=== PATIENT | female | born 1960 | race Caucasian/White ===

== ENCOUNTER → 2020-02-08 | Outpatient (CLI) | payer OTHER ==
--- NOTE | 2020-02-12 08:27 | MM ---
Reason for exam: screening (asymptomatic). Last mammogram was performed 5 years and 6 months ago. History: Patient is postmenopausal. Physical Findings: A clinical breast exam by your physician is recommended on an annual basis and results should be correlated with mammographic findings. MG Screening Mammo w CAD Bilateral CC, MLO, and XCCL view(s) were taken. Prior study comparison: August 16, 2014, bilateral MG screening mammo w CAD. May 19, 2009, bilateral digital screening mammogram. The breast tissue is heterogeneously dense. This may lower the sensitivity of mammography. Extensive benign oil cyst calcifications. New 8-9 o'clock posterior, central heterogeneous grouped right breast calcifications. ASSESSMENT: Incomplete: need additional imaging evaluation, BI-RAD 0 RECOMMENDATION: Special view mammogram of the right breast. (magnification) If lesion persists on supplemental views, image directed ultrasound is recommended. [facility] will attempt to contact patient to return for supplemental views and ultrasound if indicated.
== END | disposition home or self-care (01) ==
LOC: RADMAMWWP 11:09
PROVIDERS: ATTEND Internal Medicine
DX: Z12.31 Encounter for screening mammogram for malignant neoplasm of breast (principal)
CPT/HCPCS: 77067

== ENCOUNTER → 2020-02-18 | Outpatient (CLI) | payer OTHER ==
--- NOTE | 2020-02-18 13:12 | MM ---
Reason for exam: additional evaluation requested from abnormal screening. Last mammogram was performed less than 1 month ago. History: Patient is postmenopausal. Physical Findings: Nurse did not find any significant physical abnormalities on exam. MG 3D Work Up W/Cad RT CC with magnification, ML with magnification, and ML view(s) were taken of the right breast. Prior study comparison: February 08, 2020, bilateral MG screening mammo w CAD. August 16, 2014, bilateral MG screening mammo w CAD. There are scattered fibroglandular densities. Finding: There are intermediate concern, suspicious coarse heterogeneous, grouped/clustered calcifications in the lower outer quadrant, posterior position of the right breast 9cm from the nipple. New finding since February 08, 2020 and August 16, 2014. These results were verbally communicated with the patient and result sheet given to the patient on 02/18/20. ASSESSMENT: Suspicious, BI-RAD 4 RECOMMENDATION: Stereotactic core biopsy of the right breast. Called Dr. Jay's office with mammographic findings and has scheduled an appointment for the patient for 03/26/20 at 12:[address] Blancas. Biopsy scheduled for 03/13/20 at 10:00. PRELIMINARY REPORT CALLED AND FAXED TO DR. BLANCAS ON 02/18/20.
== END | disposition home or self-care (01) ==
LOC: RADMAMWWP 08:00
PROVIDERS: ATTEND Internal Medicine
DX: R92.8 Other abnormal and inconclusive findings on diagnostic imaging of breast (principal)
CPT/HCPCS: 77061; 77065

== ENCOUNTER → 2020-03-13 | Day surgery (SDC) | payer OTHER ==
[2020-03-13 09:11] VITALS: PULSE 80; RESP 16
[2020-03-13 10:51] VITALS: BP 128/69; TEMP 97.9
--- NOTE | 2020-03-13 15:37 | MM ---
Stereotactic Mammotome core biopsy right breast. HISTORY: Microcalcifications The Microcalcifications in question within the right breast were targeted by the undersigned. Procedure was performed by the undersigned. Informed consent was obtained and all of the patients questions were answered. The standard sterile technique was utilized and appropriate local anesthesia was obtained with 1% lidocaine. Mammotome probe was advanced and multiple core samples were obtained and sent to pathology for interpretation. Microclip marker was deployed at the site of biopsy. Post procedural mammogram demonstrates appropriate deployment of radiopaque clip marker. The patient tolerated the procedure well and left the department in stable condition. Pathology results are pending. IMPRESSION: Successful stereotactic core biopsy right breast with pathology results pending. Pathology Results: Benign RIGHT BREAST, NEEDLE CORE BIOPSY: Fatty breast parenchyma with fibroadenomatoid changes and coarse intraductal as well as stromal calcifications in a background of fibrocystic spectrum changes. Recommendation Follow up mammogram of the right breast in 6 months. LATOYA
== END ==
LOC: RADMAMWWP 08:45
PROVIDERS: ATTEND Surgery
DX: D24.1 Benign neoplasm of right breast (principal); N60.11 Diffuse cystic mastopathy of right breast
CPT/HCPCS: 88305; 19081; A4648; J2001

== ENCOUNTER → 2020-06-23 | Outpatient (CLI) | payer OTHER ==
[2020-06-23 16:02] LABS: Albumin 4.3 g/dL (3.80-4.90); Albumin/Globulin Ratio 1.95 (1.60-3.17); Anion Gap 6.2 mmol/L (4.00-12.00); Calcium 8.9 mg/dL (8.7-10.3); Carbon Dioxide 28.8 mmol/L (21.6-31.8); Chol/HDL Ratio 3.53; Globulin 2.2 g/dL (1.6-3.3); LDL Cholesterol,Calculated 127.2 mg/dL (0.0-131.0); Non-African American GFR(CKD) 98.4 (60.0-200.0); Potassium 4.7 mmol/L (3.5-5.5); Total Bilirubin 0.5 mg/dL (0.3-1.2); Total Protein 6.5 g/dL (6.2-8.2); VLDL Calculation 16.8 mg/dL (5.00-40.00)
[2020-06-23 16:30] LABS: Hemoglobin A1C 7.2 % (4.0-6.0)
[2020-06-23 16:42] LABS: Urine Creatinine 131.9 mg/dL
== END | disposition home or self-care (01) ==
LOC: LABWHC1 10:25
PROVIDERS: ATTEND Internal Medicine Endocrinology, Diabetes & Metabolism
DX: E11.65 Type 2 diabetes mellitus with hyperglycemia (principal)
CPT/HCPCS: 36415; 80053; 80061; 82043; 82570; 83036; 84443

== ENCOUNTER → 2020-08-11 | Outpatient (CLI) | payer OTHER ==
--- NOTE | 2020-08-12 14:50 | BD ---
EXAMINATION TYPE: Axial Bone Density DATE OF EXAM: 08/11/2020 COMPARISON: NONE CLINICAL HISTORY: Height: 5 FT 4 1/4 IN Weight: 271 FRAX RISK QUESTIONS: Alcohol (3 or more units per day): NO Family History (Parent hip fracture): NO Glucocorticoids (More than 3mos): NO (Ex: prednisone, prednisolone, methylprednisolone, dexamethasone, and hydrocortisone). History of Fracture in Adulthood: YES Secondary Osteoporosis: 1. Type 1 Diabetes: NO 2. Hyperthyroidism: NO 3. Menopause before 45: NO 4. Malnutrition: NO 5. Chronic liver disease: NO Rheumatoid Arthritis: NO Current Tobacco Use: NO RISK FACTORS HISTORY OF: Family History of Osteoporosis: NO Active: NO Diet low in dairy products/other sources of calcium: NO Postmenopausal woman: MID TO LATE 40'S Take estrogen and/or progesterone medications: NONE Lost more than 2 inches in height since high school: NO Poor Health: FAIR MEDICATIONS: Additional Medications: RYBELSIS, GLIPIZIDE, METFORMIN, LEXAPRO, ANALAPRIL, IBUPROFEN, DITILISEM Additional History: EXAM MEASUREMENTS: Bone mineral densitometry was performed using the [employer] System. Bone mineral density as measured about the Lumbar spine is: ----- L1-L4(G/cm2): 1.472 T Score Values are as follows: ----- L2: 1.9 ----- L3: 2.3 ----- L4: 2.0 ----- L1-L4: 2.4 Bone mineral density has: INCREASED 0.2 % since study of: 2014 Bone mineral density about the R hip (g/cm2): 0.876 Bone mineral density about the L hip (g/cm2): 1.153 T Score values are as follows: -----R Neck: -1.2 -----L Neck: 0.8 -----R Total: 1.3 -----L Total: 1.7 Bone mineral density has: DECREASED -4.6 % since study of: 2014 IMPRESSION: Osteopenia (T Score between -2.5 and -1). There is slightly increased risk of fracture and the patient may be considered for treatment. Re-Screen 2-5 years. NOTE: T-SCORE=SD OF THE YOUNG ADULT MEAN.
== END | disposition home or self-care (01) ==
LOC: RADBDWWP 09:19
PROVIDERS: ATTEND Internal Medicine
DX: M85.80 Other specified disorders of bone density and structure, unspecified site (principal); Z78.0 Asymptomatic menopausal state
CPT/HCPCS: 77080

== ENCOUNTER → 2020-09-15 | Outpatient (CLI) | payer OTHER ==
--- NOTE | 2020-09-15 14:04 | MM ---
Reason for exam: follow-up at short interval from prior study. Last mammogram was performed 7 months ago. History: Patient is postmenopausal. Benign MG stereo VAD BX RT of the right breast, March 13, 2020. Took hormonal contraceptives for 3 years beginning at age 19. Physical Findings: Nurse did not find any significant physical abnormalities on exam. MG 3D Diag Mammo W/Cad RT CC and MLO view(s) were taken of the right breast. Prior study comparison: February 18, 2020, right breast MG 3d work up w/cad RT. February 08, 2020, bilateral MG screening mammo w CAD. The breast tissue is heterogeneously dense. This may lower the sensitivity of mammography. Stable scattered calcifications. Previous mammotome biopsy in the right breast. There is no discrete abnormality. No significant new findings when compared with previous films. These results were verbally communicated with the patient and result sheet given to the patient on 09/15/20. ASSESSMENT: Benign, BI-RAD 2 RECOMMENDATION: Return to routine screening mammogram schedule for both breasts.
== END | disposition home or self-care (01) ==
LOC: RADMAMWWP 13:06
PROVIDERS: ATTEND Surgery
DX: R92.8 Other abnormal and inconclusive findings on diagnostic imaging of breast (principal)
CPT/HCPCS: 77061; 77065

== ENCOUNTER 2021-02-22 15:26 | Emergency (ER) | payer OTHER ==
[2021-02-22 15:31] VITALS: TEMP 99.1
--- NOTE | 2021-02-22 16:24 | XR ---
EXAMINATION TYPE: XR chest 2V DATE OF EXAM: 02/22/2021 COMPARISON: 02/16/2010 HISTORY: Difficulty breathing TECHNIQUE: 2 views FINDINGS: Heart and mediastinum are normal. Lungs are clear. Diaphragm is normal. Bony thorax appears normal. IMPRESSION: Normal chest. No change.
[2021-02-22] MEDS ORDERED: CASIRIVIMAB (REGN10933) (EUA) 600 MG, IMDEVIMAB (REGN10987) (EUA) 600 MG in SODIUM CHLO... IVPB ONE (16:30)
[2021-02-22] MEDS ORDERED: SODIUM CHLORIDE 0.9% 50 ML IVPB ONE (16:30)
--- NOTE | 2021-02-22 16:41 | ED ---
SOB HPI - General Chief Complaint: Shortness of Breath Stated Complaint: Covid+, SOB Time Seen by Provider: 02/22/21 15:38 Source: patient, RN notes reviewed Mode of arrival: ambulatory Limitations: no limitations - History of Present Illness Initial Comments: A she is a 60-year-old female that presented emergency department complaining of Covid positive test today 02/22/2021 with mild symptoms of fatigue and shortness of breath sensation. They note that they went to [facility] got tested positive and sent here for monoclonal antibody therapy. Patient was otherwise a well-appearing 60-year-old female in no distress or pain. She denied any chest pain headache nausea vomiting diarrhea constipation fever fatigue chills. - Related Data Home Medications Medication Instructions Recorded Confirmed Enalapril [Vasotec] 20 mg PO DAILY 02/29/20 03/13/20 Escitalopram Oxalate [Lexapro] 20 mg PO DAILY 02/29/20 03/13/20 Ibuprofen [Motrin] 800 mg PO BID 02/29/20 03/13/20 Losartan Potassium [Cozaar] 90 mg PO BID 02/29/20 03/13/20 glipiZIDE [Glucotrol] 5 mg PO BID 02/29/20 03/13/20 metFORMIN HCL [Glucophage] 1,000 mg PO BID 02/29/20 03/13/20 sitaGLIPtin [Januvia] 100 mg PO DAILY 02/29/20 03/13/20 Allergies Allergy/AdvReac Type Severity Reaction Status Date / Time Penicillins Allergy Rash/Hives Verified 02/22/21 15:31 codeine AdvReac Nausea Verified 02/22/21 15:31 Review of Systems ROS Statement: Those systems with pertinent positive or pertinent negative responses have been documented in the HPI. ROS Other: All systems not noted in ROS Statement are negative. Past Medical History Past Medical History: Diabetes Mellitus, Hypertension, Osteoarthritis (OA) Additional Past Medical History / Comment(s): vasospasms History of Any Multi-Drug Resistant Organisms: None Reported Past Surgical History: Section Additional Past Surgical History / Comment(s): abdominal absess surgery. left ankle reconstruction Past Anesthesia/Blood Transfusion Reactions: No Reported Reaction Past Psychological History: Depression Smoking Status: Never smoker Past Alcohol Use History: None Reported Past Drug Use History: None Reported General Exam Limitations: no limitations General appearance: alert, in no apparent distress, obese Head exam: Present: atraumatic, normocephalic, normal inspection Eye exam: Present: normal appearance, PERRL, EOMI. Absent: scleral icterus, conjunctival injection, periorbital swelling Neck exam: Present: normal inspection Respiratory exam: Present: normal lung sounds bilaterally. Absent: respiratory distress, wheezes, rales, rhonchi, stridor Cardiovascular Exam: Present: regular rate, normal rhythm, normal heart sounds. Absent: systolic murmur, diastolic murmur, rubs, gallop, clicks GI/Abdominal exam: Present: soft, normal bowel sounds. Absent: distended, tenderness, guarding, rebound, rigid Extremities exam: Present: normal inspection, full ROM, normal capillary refill. Absent: tenderness, pedal edema, joint swelling, calf tenderness Neurological exam: Present: alert, oriented X3 Psychiatric exam: Present: normal affect, normal mood Skin exam: Present: warm, dry, intact, normal color. Absent: rash Course Vital Signs 02/22/21 15:27 Temperature 99.1 F Pulse Rate 83 Respiratory 20 Rate Blood Pressure 126/77 O2 Sat by Pulse 97 Oximetry Medical Decision Making - Medical Decision Making 60-year-old female who tested positive for Covid today and experienced 7 days with the symptoms here for monoclonal antibody therapy. Chest x-ray ordered. Chest x-ray negative for any acute cardiopulmonary process. Patient agreed to undergo monoclonal antibody IV infusion. Case discussed with Dr. Slade, patient can discharge home after infusion. - Radiology Data Radiology results: report reviewed, image reviewed Chest x-ray: Normal chest. No change. Disposition Clinical Impression: COVID Disposition: HOME SELF-CARE Condition: Stable Instructions (If sedation given, give patient instructions): Coronavirus Disease 2019 (COVID-19) Additional Instructions: Please return to the Emergency Department if symptoms worsen or any other concerns. Follow-up with primary care as needed. Quarantine per CDC guidelines. Take Tylenol Motrin as needed for any fevers. Is patient prescribed a controlled substance at d/c from ED?: No Referrals: Melani Jay MD [Primary Care Provider] - 1-2 days Time of Disposition: 16:41
[2021-02-22 18:24] VITALS: BP 142/65; PULSE 86; RESP 18
== END 2021-02-22 18:31 | disposition home or self-care (01) ==
LOC: EC 15:26
DX: U07.1 COVID-19 (principal); E11.9 Type 2 diabetes mellitus without complications; M19.90 Unspecified osteoarthritis, unspecified site; I10 Essential (primary) hypertension; Z88.5 Allergy status to narcotic agent; Z88.0 Allergy status to penicillin; Z79.84 Long term (current) use of oral hypoglycemic drugs; Z79.1 Long term (current) use of non-steroidal anti-inflammatories (NSAID); Z79.899 Other long term (current) drug therapy
CPT/HCPCS: 71046; 96365; 99284

== ENCOUNTER → 2021-03-20 | Outpatient (CLI) | payer OTHER ==
--- NOTE | 2021-03-20 14:52 | XR ---
EXAMINATION TYPE: XR chest 2V DATE OF EXAM: 03/20/2021 COMPARISON: 12/23/2020 HISTORY: Shortness of breath TECHNIQUE: Frontal and lateral views of the chest are obtained. FINDINGS: Scattered senescent parenchymal changes noted. Hyperinflation compatible with COPD. No evidence for infiltrate. No evidence for atelectasis. Heart size is stable. Mediastinal structures are stable and grossly unremarkable. No evidence for hilar prominence. Degenerative changes dorsal spine. IMPRESSION: 1. No evidence for acute pulmonary disease.
== END | disposition home or self-care (01) ==
LOC: RADXRMAIN 13:49
PROVIDERS: ATTEND Internal Medicine
DX: R06.02 Shortness of breath (principal)
CPT/HCPCS: 71046

== ENCOUNTER → 2021-07-14 | Outpatient (CLI) | payer OTHER ==
--- NOTE | 2021-07-15 15:12 | MM ---
Reason for exam: screening (asymptomatic). Last mammogram was performed 10 months ago. History: Patient is postmenopausal. Benign MG stereo VAD BX RT of the right breast, March 13, 2020. Took hormonal contraceptives for 3 years beginning at age 19. Physical Findings: A clinical breast exam by your physician is recommended on an annual basis and results should be correlated with mammographic findings. MG 3D Screening Mammo W/Cad Bilateral CC and MLO view(s) were taken. Prior study comparison: September 15, 2020, right breast MG 3d diag mammo w/cad RT. February 18, 2020, right breast MG 3d work up w/cad RT. There are scattered fibroglandular densities. No significant changes when compared with prior studies. ASSESSMENT: Benign, BI-RAD 2 RECOMMENDATION: Routine screening mammogram of both breasts in 1 year.
== END ==
LOC: RADMAMWWP 13:26
PROVIDERS: ATTEND Internal Medicine
DX: Z12.31 Encounter for screening mammogram for malignant neoplasm of breast (principal)
CPT/HCPCS: 77063; 77067

== ENCOUNTER → 2023-08-31 | Outpatient (CLI) | payer MEDICARE ==
--- NOTE | 2023-09-01 10:24 | MM ---
Reason for Exam: Screening (asymptomatic). Last mammogram was performed 2 year(s) and 2 month(s) ago. Patient History: Menarche at age 11. First Full-Term at age 21. Postmenopausal. Hormonal Contraceptives for 3 years from age 19 until age 22. 03/13/2020, Benign Core Biopsy on the right side. Risk Values: Mackenzie 5 year model risk: 1.8%. NCI Lifetime model risk: 6.6%. Prior Study Comparison: 02/18/2020 Right Diagnostic Mammogram, [facility]. 09/15/2020 Right Diagnostic Mammogram, [facility]. 07/14/2021 Bilateral Screening Mammogram, [facility]. Tissue Density: The breasts are heterogeneously dense, which may obscure small masses. Findings: Analyzed By CAD. There is no suspicious group of microcalcifications or new suspicious mass in either breast. Overall Assessment: Benign, BI-RAD 2 Management: Screening Mammogram of both breasts in 1 year. . Patient should continue monthly self-breast exams. A clinical breast exam by your physician is recommended on an annual basis. This exam should not preclude additional follow-up of suspicious palpable abnormalities. Note on Mackenzie scores and lifetime risk: 1. A Mackenzie score greater than 3% is considered moderate risk. If this is the case, consider specialist referral to assess eligibility for a risk reducing agent. 2. If overall lifetime risk for the development of breast cancer is 20% or higher, the patient may qualify for future screening with alternating mammogram and breast MRI. Electronically signed and approved by: Gabe Schwarz M.D. Radiologis
== END | disposition home or self-care (01) ==
LOC: RADMAMWWP 10:15
PROVIDERS: ATTEND Internal Medicine
DX: Z12.31 Encounter for screening mammogram for malignant neoplasm of breast (principal); Z78.0 Asymptomatic menopausal state
CPT/HCPCS: 77063; 77067

== ENCOUNTER → 2023-12-23 | Outpatient (CLI) | payer MEDICARE ==
--- NOTE | 2023-12-24 10:22 | XR ---
EXAMINATION TYPE: XR lumbosacral spine 5 V DATE OF EXAM: 12/23/2023 Comparison: None Clinical History: 63-year-old female M54.50 LOW BACK PAIN, UNSPECIFIED Findings: Hypertrophic facet arthropathy throughout especially mid to lower lumbar spine. Situated lumbar lordo sis. Degenerative grade 1 anterolisthesis L4-L5. Degenerative grade 1 retrolisthesis T12-L1, L1-L2, a nd L2-L3. Vertebral body heights are preserved. Anterior endplate spondylosis especially lower thorac ic and upper lumbar spine. Mild to moderate degenerative disc disease throughout. Baastrup's disease. Impression: 1. Hypertrophic facet arthropathy throughout with degenerative grade 1 spondylolisthesis T12-L3 level s as well as L4-L5. 2. Accentuated lumbar lordosis and Baastrup's disease. 3. Mild to moderate multilevel degenerative disc disease. 4. No vertebral compression collapse.
== END | disposition home or self-care (01) ==
LOC: RADXRMAIN 16:59
PROVIDERS: ATTEND Internal Medicine
DX: M43.16 Spondylolisthesis, lumbar region (principal); M51.36 Other intervertebral disc degeneration, lumbar region; M47.816 Spondylosis without myelopathy or radiculopathy, lumbar region; M48.26 Kissing spine, lumbar region
CPT/HCPCS: 72110

== ENCOUNTER → 2024-01-05 | Outpatient (CLI) | payer MEDICARE | END | disposition home or self-care (01) | LOC: LABPAT 01-04 15:28 | PROVIDERS: ATTEND Orthopaedic Surgery | DX: Z01.812 Encounter for preprocedural laboratory examination (principal); M19.011 Primary osteoarthritis, right shoulder; Z22.322 Carrier or suspected carrier of Methicillin resistant Staphylococcus aureus | CPT/HCPCS: 87070 ==

== ENCOUNTER 2024-01-13 05:48 | Day surgery (SDC) | payer MEDICARE ==
[2024-01-11 11:10] VITALS: BMI 42.0
--- NOTE | 2024-01-12 08:41 | P.HPOR ---
History of Present Illness H&P Date: 01/12/24 Chief Complaint: Right shoulder pain The patient is a 63-year-old female who presents with right shoulder pain for the past several years. It's worsened recently. She's having pain with any attempted overhead use and at night. She's tried medications in addition to therapy and home exercises without much relief. She notes daily pain that limits her. Review of Systems Per HPI Past Medical History Past Medical History: Diabetes Mellitus, GERD/Reflux, Hyperlipidemia, Hypertension, Osteoarthritis (OA) Additional Past Medical History / Comment(s): Vasospasms, none since diagnosed, benign positional vertigo. History of Any Multi-Drug Resistant Organisms: None Reported Past Surgical History: Section, Orthopedic Surgery Additional Past Surgical History / Comment(s): Abdominal absess surgery, esophageal dilation, left ankle reconstruction with hardware. Past Anesthesia/Blood Transfusion Reactions: No Reported Reaction Smoking Status: Never smoker - Past Family History Father Family Medical History: No Reported History Medications and Allergies Home Medications Medication Instructions Recorded Confirmed Type Enalapril [Vasotec] 20 mg PO DAILY 02/29/20 01/11/24 History Escitalopram Oxalate [Lexapro] 20 mg PO DAILY 02/29/20 01/11/24 History Ibuprofen [Motrin] 800 mg PO BID 02/29/20 01/11/24 History metFORMIN HCL [Glucophage] 1,000 mg PO BID 02/29/20 01/11/24 History Ascorbic Acid [Vitamin C] 1,000 mg PO BID 02/22/21 01/11/24 History Calcium Carb/Mag Ox/Zinc Sulf 2 tab PO DAILY 02/22/21 01/11/24 History [Jfb-Txu-Vbha 334-134-5 mg Tab] Cholecalciferol [Vitamin D3 (25 5,000 units PO DAILY 02/22/21 01/11/24 History Mcg = 1000 Iu)] Cyanocobalamin (Vitamin B-12) 1,000 mcg PO AC-SUPPER 02/22/21 01/11/24 History [Vitamin B-12] Glucosamine/Chondr Urbina A Sod [Osteo 2 tab PO DAILY 02/22/21 01/11/24 History Bi-Flex Caplet] Pyridoxine HCl (Vitamin B6) 100 mg PO AC-SUPPER 02/22/21 01/11/24 History [Vitamin B-6] Semaglutide [Ozempic] 1 mg SQ MO 02/22/21 01/11/24 History Turmeric Root Extract [Turmeric] 500 mg PO BID 02/22/21 01/11/24 History Vitamin B Complex 1 cap PO AC-SUPPER 02/22/21 01/11/24 History Zinc 50 mg PO DAILY 02/22/21 01/11/24 History dilTIAZem HCL [Cardizem] 90 mg PO BID 02/22/21 01/11/24 History Omeprazole 20 mg PO HS 01/05/24 01/11/24 History Atorvastatin [Lipitor] 20 mg PO HS 01/11/24 01/11/24 History Allergies Allergy/AdvReac Type Severity Reaction Status Date / Time Penicillins Allergy Rash/Hives Verified 01/11/24 10:57 codeine AdvReac Nausea Verified 01/11/24 10:57 Physical Examination - Shoulder right Appearance: effusion Tenderness with palpation: anterior, bicipital groove Pain: with abduction, with forward flexion ROM: abduction: 80 degrees ROM: internal rotation: lower lumbar ROM: external rotation: 20 degrees Crepitus with motion: Yes Strength: abduction: 5/5 Strength: external rotation: 5/5 Tests: internal impingement tests: positive, external impingment tests: positive Results The patient is a well-developed well-nourished female proximally 5 foot 6, 255 pounds of endomorphic habits. HEENT exam is nonfocal, neck is supple. She's tender about the anterior right glenohumeral joint. Moderate crepitus is noted. Beasley, Neer sign, and speed tests are positive. Passive forward elevation is 90. Her distal neurovascular exam appears intact in the right upper extremity. - Diagnostic results Shoulder x-ray: image reviewed (3 views of the right shoulder obtaining the office show severe glenohumeral joint space narrowing with [id number] changes and subchondral sclerosis.) Assessment and Plan Assessment: Right severe glenohumeral joint osteoarthrosis Obesity Plan: I talked to the patient at length regarding her condition along with treatment options. At this point she is quite symptomatic having pain and mechanical symptoms related to her right shoulder osteoarthrosis despite conservative measures. After a thorough discussion she opts to proceed with surgery. We'll plan to proceed with right total shoulder arthroplasty. Risks and benefits were discussed at length in layman's terms. We will likely keep the patient for 23 hole postoperatively.
[~2024-01-13 05:48] MED LIST: TRANEXAMIC 1,000 MG/100ML-NACL 1,000 MG in SALINE 1 100ML.BAG IVPB PRN
[2024-01-13] MEDS ORDERED: LIDOCAINE 1% (10MG/ML) FOR IV START INTRADERMA PRN (06:11)
[2024-01-13] MEDS: IV FLUID CONTINUATION 1,000 ML IV ONE ×2 (06:19→09:42)
[2024-01-13 06:39] LABS: Glucose,Whole Blood 138 mg/dL (70-110)
[2024-01-13] MEDS: ONDANSETRON 4 MG/2 ML VIAL IVP ONE (06:48)
[2024-01-13] MEDS: LACTATED RINGERS 1,000 ML IV SCH (06:48)
[2024-01-13] MEDS: MELOXICAM 7.5 MG TAB PO PRN (06:49)
[2024-01-13] MEDS: ACETAMINOPHEN TAB 500 MG TAB PO PRN (06:49)
[2024-01-13] MEDS: DEXAMETHASONE SOD PHOSPHATE 4 MG/ML 1 ML VIAL IV ONE (06:49)
[2024-01-13] MEDS: MIDAZOLAM 2 MG/2 ML VIAL IVP ONE (06:51)
[2024-01-13] MEDS: fentaNYL (PF) 50 MCG/ML 2 ML AMP IVP ONE (06:51)
[2024-01-13] MEDS ORDERED: MIDAZOLAM 2 MG/2 ML VIAL IV PRN (07:00)
[2024-01-13] MEDS ORDERED: fentaNYL (PF) 50 MCG/ML 2 ML AMP ONE (07:26)
[2024-01-13] MEDS ORDERED: PHENYLEPHRINE 10 MG/ML VIAL ONE (07:26)
[2024-01-13] MEDS ORDERED: MIDAZOLAM 2 MG/2 ML VIAL ONE (07:26)
[2024-01-13] MEDS ORDERED: ROCURONIUM 10 MG/ML (5 ML VIAL) IV ONE (07:26)
[2024-01-13] MEDS ORDERED: SUCCINYLCHOLINE CHLORIDE 200 MG/10 ML VIAL IV ONE (07:26)
[2024-01-13] MEDS ORDERED: LIDOCAINE 1%-EPI 1:100,000 20 ML VIAL ONE (07:26)
[2024-01-13] MEDS ORDERED: NEOSTIGMINE 1 MG/ML 10 ML VIAL ONE (07:26)
[2024-01-13] MEDS ORDERED: ROPIVACAINE 5 MG/ML 30 ML VIAL ONE (07:26)
[2024-01-13] MEDS ORDERED: LIDOCAINE 1% INJ 10MG/ML (20 ML MDV) ONE (07:26)
[2024-01-13] MEDS ORDERED: GLYCOPYRROLATE 0.2 MG/ML 2 ML VIAL ONE (07:26)
[2024-01-13] MEDS ORDERED: PROPOFOL 10 MG/ML 20 ML VIAL IV ONE (07:26)
--- NOTE | 2024-01-13 07:58 | P.ANPRN ---
Procedure Note - Anesthesia - Nerve Block Performed Right Interscalene Single Time Out Performed: Yes Date of Procedure: 01/13/24 Procedure Start Time: 06:50 Procedure Stop Time: 07:01 Location of Patient: PreOp Indication: Acute Post-Operative Pain, Requested by Surgeon Sedation Type: Sedate with meaningful contact maintained Preparation: Sterile Prep Position: Supine Needle Types: Pajunk Needle Gauge: 21 Ultrasound used to visualize needle placement: Yes Ultrasound used to observe medication spread: Yes Injectate: 0.5% Ropivacaine (see comment for volume) (15 ml + 10 ml 1% lidocaine with epi) Blood Aspirated: No Pain Paresthesia on Injection Noted: No Resistance on Injection: Normal Image Stored and Saved: Yes Events: Uneventful and Well Tolerated
[2024-01-13] MEDS: ceFAZolin 1,000 MG in SODIUM CHLORIDE 0.9% 1,000 ML IRRIGATION ONE (08:00)
[2024-01-13] MEDS ORDERED: ONDANSETRON 4 MG/2 ML VIAL IVP PRN (09:16)
[2024-01-13] MEDS ORDERED: HYDROcodone/APAP 5-325MG 1 EACH TAB PO PRN (09:16)
[2024-01-13] MEDS: LACTATED RINGERS 1,000 ML IV ONE (09:23)
[2024-01-13] MEDS: HYDROmorphone 0.5 MG/0.5 ML SYRINGE IVP PRN ×2 (10:07→23:33)
--- NOTE | 2024-01-13 11:46 | P.CONS ---
History of Present Illness - Reason for Consult Consult date: 01/13/24 - History of Present Illness Keily Arambula is a 63-year-old female patient who presented for right shoulder osteoplasty with Dr. Mckoy on 01/12/2024 patient has a long-standing history of osteoarthritis to right shoulder with failed conservative management.additional medical history includes diabetes mellitus, GERD, hyperlipidemia, hypertension, osteoarthritis and depression. At this time patient is resting comfortably bed. Patient complaining of some right shoulder pain. Current vital signs temp 97.6, heart rate, respiratory rate 16, blood pressure 107/54 with pulse ox of 97% on 3 L. Patient denies chest pain or shortness breath. Patient denies nausea vomiting or diarrhea. Patient denies any urinary burning or frequency Review of Systems please refer to HPI otherwise unremarkable Past Medical History Past Medical History: Diabetes Mellitus, GERD/Reflux, Hyperlipidemia, Hypertension, Osteoarthritis (OA) Additional Past Medical History / Comment(s): Vasospasms, none since diagnosed, benign positional vertigo. History of Any Multi-Drug Resistant Organisms: None Reported Past Surgical History: Section, Orthopedic Surgery Additional Past Surgical History / Comment(s): Abdominal absess surgery, esophageal dilation, left ankle reconstruction with hardware. Past Anesthesia/Blood Transfusion Reactions: No Reported Reaction Smoking Status: Never smoker - Past Family History Father Family Medical History: No Reported History Medications and Allergies Home Medications Medication Instructions Recorded Confirmed Type Enalapril [Vasotec] 20 mg PO DAILY 02/29/20 01/13/24 History Escitalopram Oxalate [Lexapro] 20 mg PO DAILY 02/29/20 01/13/24 History Ibuprofen [Motrin] 800 mg PO BID 02/29/20 01/13/24 History metFORMIN HCL [Glucophage] 1,000 mg PO BID 02/29/20 01/13/24 History Ascorbic Acid [Vitamin C] 1,000 mg PO BID 02/22/21 01/13/24 History Calcium Carb/Mag Ox/Zinc Sulf 2 tab PO DAILY 02/22/21 01/13/24 History [Wod-Pwe-Aypm 334-134-5 mg Tab] Cholecalciferol [Vitamin D3 (25 5,000 units PO DAILY 02/22/21 01/13/24 History Mcg = 1000 Iu)] Cyanocobalamin (Vitamin B-12) 1,000 mcg PO AC-SUPPER 02/22/21 01/13/24 History [Vitamin B-12] Glucosamine/Chondr Urbina A Sod [Osteo 2 tab PO DAILY 02/22/21 01/13/24 History Bi-Flex Caplet] Pyridoxine HCl (Vitamin B6) 100 mg PO AC-SUPPER 02/22/21 01/13/24 History [Vitamin B-6] Semaglutide [Ozempic] 1 mg SQ MO 02/22/21 01/13/24 History Turmeric Root Extract [Turmeric] 500 mg PO BID 02/22/21 01/13/24 History Vitamin B Complex 1 cap PO AC-SUPPER 02/22/21 01/13/24 History Zinc 50 mg PO DAILY 02/22/21 01/13/24 History dilTIAZem HCL [Cardizem] 90 mg PO BID 02/22/21 01/13/24 History Omeprazole 20 mg PO HS 01/05/24 01/13/24 History Atorvastatin [Lipitor] 20 mg PO HS 01/11/24 01/13/24 History Allergies Allergy/AdvReac Type Severity Reaction Status Date / Time Penicillins Allergy Rash/Hives Verified 01/13/24 06:30 codeine AdvReac Nausea Verified 01/13/24 06:30 Physical Exam Vitals: Vital Signs Temp Pulse Pulse Resp BP BP Pulse Ox 01/13/24 10:11 67 16 111/50 97 01/13/24 09:56 72 16 128/60 96 01/13/24 09:41 97.6 F 91 16 124/65 95 01/13/24 07:23 85 16 119/58 97 01/13/24 06:30 97.6 F 75 16 122/57 99 Intake and Output 01/12/24 01/13/24 01/13/24 22:59 06:59 14:59 Intake Total 500 451 Output Total 150 Balance 500 301 Intake: IV 500 451 Output: Estimated Blood Loss 150 Other: Weight 112.5 kg Head normocephalic Neck supple Lungs clear to auscultation bilaterally no wheezing or crackles Heart regular rate and rhythm S1-S2, no rub or gallop Abdomen is soft nontender nondistended positive bowel sounds no hepatosplenomegaly Extremities no edema. Right shoulder dressing clean dry and intact Neuro alert and orientated to 3 Results Labs: Abnormal Lab Results - Last 24 Hours (Table) 01/13/24 Range/Units 06:36 POC Glucose (mg/dL) 138 H (70-110) mg/dL Assessment and Plan Assessment: 1. Status post right shoulder arthroplasty with Dr. Mckoy on 01/13/2024 2. History of diabetes mellitus 3. History of GERD 4. History of essential hypertension 5. History of depression thank you for this consultation we will continue to follow patient closely throughout stay Home meds resumed A.m. labs ordered Time with Patient: Greater than 30 (Greater than 60% of the total time spent in counseling and coordination of care)
[2024-01-13] MEDS: HYDROmorphone 1 MG/ML 1 ML SYRINGE IVP PRN (13:15)
--- NOTE | 2024-01-13 14:27 | P.OP ---
Date of Procedure: 01/13/24 Preoperative Diagnosis: Right severe glenohumeral joint osteoarthrosis Postoperative Diagnosis: Same Procedure(s) Performed: Right total shoulder arthroplasty Implants: [employer] size 12 press-fit humeral stem, size 12 body, 44 x 18 eccentric humeral head, 44 mm pegged cemented glenoid component. Anesthesia: jace VIEIRA Surgeon: Renan Rolon Daylight Driller #1: Jacob Daniel Estimated Blood Loss (ml): 150 Pathology: none sent Condition: stable Disposition: PACU Indications for Procedure: The patient's a 63-year-old female who presents with progressive right shoulder pain secondary to osteoarthrosis despite conservative measures. A discussion of the risks and benefits of operative intervention versus continued conservative measures was made with the patient. She opted to proceed with surgery. Operative risks to include infection, neurovascular injury, developed blood clots, fracture, possible component loosening/failure and possible need for subsequent procedures was discussed. Informed consent was obtained. Operative Findings: As below Description of Procedure: The patient was brought to the operating room, and after induction of general anesthesia was placed in the beachchair position. The bony prominences were appropriately padded. The right upper extremity was prepped and draped in normal fashion. A deltopectoral incision was then made lateral to the coracoid process extending approximately 12 cm. The skin was incised sharply. Subcutaneous tissues were divided bluntly. Electrocautery was used for hemostasis. The deltopectoral interval was identified and the cephalic vein gently retracted laterally with the deltoid. Subdeltoid adhesions were bluntly dissected. A self-retaining retractor was placed. The clavipectoral fascia was opened and the conjoined tendon gently retracted medially. The upper one third of the pectoralis major was released to help facilitate exposure. The biceps was identified and the sheath was opened. The rotator interval was opened. The biceps was tenotomized and allowed to retract distally. A scapularis peel was performed and this was tagged with #2 Ethibond.. The humeral head was then exposed releasing the capsule off the humeral neck. The shoulder was gently dislocated. A starting hole was made in the head in line with the humeral shaft. The shaft was reamed by hand up to 12 mm. There is good distal chatter. The cutting guide was placed planning on 8 cut flush with the rotator cuff insertion and 30 of retroversion. The cutting block was pinned in place. The humeral head cut was then made. This measured most appropriately at 44 mm. Residual inferior osteophytes were carefully removed flush with the sycuan cortical bone. A posterior glenoid retractor was placed. The glenoid was then exposed releasing the labrum from the 12-6 o'clock position. Residual labral tissue was removed. The glenoid sized most appropriate for mm. A guidewire was then inserted planning on the appropriate version. The glenoid was reamed down to a bleeding bony surface. The central peg hole was drilled. The alignment guide was placed in the peripheral peg holes drilled. The trial size 44 mm glenoid was placed and was fully seated. There was good anterior to posterior and inferior to superior fit. The trial component was removed. Pulsatile lavage was utilized. The bony surface was dried. The peripheral peg holes were then pressurized with cement utilizing a syringe. Excess cement was removed. A central peg glenoid was then placed and was fully seated. This was gently impacted. This was held in place until the cement had sufficiently hardened. Attention was then paid again towards preparing the proximal humerus. The appropriate broach was placed in 30 of retroversion and was fully seated. An eccentric 44 x 18 mm humeral head was placed. The shoulder was gently reduced. It was taken through a range of motion. It was felt to be stable in flexion and extension with internal and external rotation. I felt there was adequate roman catholic of soft tissue tension. The shoulder was gently dislocated. The trial components were then removed. A #2 Ethibond was placed laterally for reattachment of the lesser tuberosity. The humeral stem was inserted in 30 of retroversion and was fully seated. There was good rotational stability. The eccentric 44 x 18 mm humeral head was gently impacted. The shoulder was then gently reduced and taken through range of motion and was felt to be stable. Pulsatile lavage was utilized. The subscapularis was reattached utilizing #2 Ethibond suture. The rotator interval was closed with #2 Ethibond suture. She had minimal drainage at this point therefore a deep drain was not placed. The deltopectoral interval was closed with interrupted 2-0 Vicryl sutures. The subcu tissues were reapproximated with interrupted 2-0 Vicryl sutures. The skin was reprepped with 3-0 subcuticular Prolene suture. Steri-Strips were applied. A sterile dressing was applied in addition to a sling. The patient was then awoken from general anesthesia and transferred to recovery room in good condition. Blood loss was estimated at 150 mL. No complications were incurred. Sponge and needle counts were correct at the end the case. Lei LOPEZ assisted of the major components the case to include positioning, exposure, r esection, implantation, and closure.
[2024-01-13 14:28] LABS: Glucose,Whole Blood 155 mg/dL (70-110)
[2024-01-13] MEDS: CYANOCOBALAMIN 500 MCG TAB PO SCH (16:32)
[2024-01-13 16:43] LABS: Glucose,Whole Blood 151 mg/dL (70-110)
[2024-01-13] MEDS: PYRIDOXINE 50 MG TAB PO SCH (16:44)
[2024-01-13] MEDS ORDERED: NON FORMULARY DRUG (Vitamin B Complex [Vitamin B Complex] 1 EACH Capsule) PO SCH (17:30)
[2024-01-13] MEDS: ATORVASTATIN 20 MG TAB PO SCH (20:36)
[2024-01-13] MEDS: metFORMIN 500 MG TAB PO SCH (20:36)
[2024-01-13] MEDS: PANTOPRAZOLE 40 MG TABLET PO SCH (20:37)
[2024-01-13] MEDS: DILTIAZEM ORAL 30 MG TAB PO SCH (20:37)
[2024-01-13] MEDS: ASCORBIC ACID 500 MG TAB PO SCH (20:37)
[2024-01-13 20:49] LABS: Glucose,Whole Blood 188 mg/dL (70-110)
--- NOTE | 2024-01-13 20:50 | XR ---
EXAMINATION TYPE: XR shoulder complete AP portable RT DATE OF EXAM: 01/13/2024 Comparison: None Clinical History: 63-year-old female s/p right total shoulder arthroplasty Findings: Single image shows placement of right shoulder arthroplasty. The humeral stem component appears well seated. Alignment grossly anatomic. Moderate degenerative change at the AC joint. Airless to recent o peration. There is opacity at the right mid lung, partially visualized. Impression: 1. Uncomplicated postoperative appearance right total shoulder arthroplasty. 2. Opacity at the right mid lung partially visualized. Consider dedicated chest radiograph to exclude any infiltrate or other abnormality.
[2024-01-13] MEDS ORDERED: NON FORMULARY DRUG (Turmeric Root Extract [Turmeric] 500 MG Capsule) PO SCH (21:00)
[2024-01-13 21:27] VITALS: RESP 18
[2024-01-14 06:15] LABS: Glucose,Whole Blood 146 mg/dL (70-110)
[2024-01-14] MEDS: HYDROcodone/APAP 7.5-325MG 1 EACH TAB PO PRN (06:39)
[2024-01-14 08:10] VITALS: BP 115/63; PULSE 80; TEMP 97.8
[2024-01-14] MEDS: SENNOSIDES-DOCUSATE SODIUM 1 EACH TAB PO SCH (08:52)
[2024-01-14] MEDS: CHOLECALCIFEROL 125 MCG (5000 IU) TABLET PO SCH (08:52)
[2024-01-14] MEDS: ASPIRIN 325 MG TAB PO SCH (08:52)
[2024-01-14] MEDS: IBUPROFEN 800 MG TAB PO SCH (08:52)
[2024-01-14] MEDS: ESCITALOPRAM 20 MG TAB PO SCH (08:52)
[2024-01-14] MEDS: lisinopriL 20 MG TAB PO SCH (08:52)
[2024-01-14] MEDS: ZINC SULFATE 220 MG CAP PO SCH (08:52)
[2024-01-14] MEDS ORDERED: NON FORMULARY DRUG (Glucosamine/Chondr Su A Sod [Osteo Bi-Flex Caplet] 1 EACH Tablet) PO SCH (09:00)
[2024-01-14] MEDS ORDERED: NON FORMULARY DRUG (Calcium Carb/Mag Ox/Zinc Sulf [Cal-Mag-Zinc 334-134-5 Mg Tab] 1 EACH T PO SCH (09:00)
[2024-01-14 09:40] LABS: Basophils # (A) 0.03 X 10*3/uL (0.00-0.10); Basophils % (A) 0.3 %; Eosinophils # (A) 0.08 X 10*3/uL (0.04-0.35); Eosinophils % (A) 0.9 %; HCT 32.6 % (37.2-46.3); HGB 10.8 g/dL (12.0-15.0); Lymphocytes # (A) 1.55 X 10*3/uL (0.90-5.00); Lymphocytes % (A) 16.9 %; MCH 30.3 pg (27.0-32.0); MCHC 33.1 g/dL (32.0-37.0); MCV 91.6 FL (80.0-97.0); Mean Platelet Volume 9.2 FL (9.5-12.2); Monocytes # (A) 1.06 X 10*3/uL (0.20-1.00); Monocytes % (A) 11.6 %; NRBC Per 100 WBC 0 X 10*3/uL (0.00-0.01); Neutrophils # (A) 6.41 X 10*3/uL (1.80-7.70); Neutrophils % (A) 69.9 %; Platelet Count 267 X 10*3/uL (140-440); RBC 3.56 X 10*6/uL (4.10-5.20); RDW 12.5 % (11.5-14.5); WBC 9.17 X 10*3/uL (4.50-10.00)
[2024-01-14 09:53] LABS: ALT 10 U/L (8-44); AST 14 U/L (13-35); Albumin 3.7 g/dL (3.8-4.9); Albumin/Globulin Ratio 1.76 Ratio (1.60-3.17); Alkaline Phosphatase 77 U/L (41-126); BUN/Creat Ratio 17.29 Ratio (12.00-20.00); Blood Urea Nitrogen 12.1 mg/dL (9.0-27.0); Calcium 8.6 mg/dL (8.7-10.3); Carbon Dioxide 27.3 mmol/L (21.6-31.8); Chloride 98 mmol/L (96-109); Globulin 2.1 g/dL (1.6-3.3); Glucose 156 mg/dL (70-110); Potassium 4.2 mmol/L (3.5-5.5); Sodium 135 mmol/L (135-145); Total Bilirubin 0.4 mg/dL (0.3-1.2); Total Protein 5.8 g/dL (6.2-8.2)
[2024-01-14 11:40] LABS: Glucose,Whole Blood 144 mg/dL (70-110)
--- NOTE | 2024-01-14 11:43 | P.PN ---
Subjective Progress Note Date: 01/14/24 Keily Arambula is a 63-year-old female patient who presented for right shoulder osteoplasty with Dr. Mckoy on 01/12/2024 patient has a long-standing history of osteoarthritis to right shoulder with failed conservative management.additional medical history includes diabetes mellitus, GERD, hyperlipidemia, hypertension, osteoarthritis and depression. At this time patient is resting comfortably bed. Patient complaining of some right shoulder pain. Current vital signs temp 97.6, heart rate, respiratory rate 16, blood pressure 107/54 with pulse ox of 97% on 3 L. Patient denies chest pain or shortness breath. Patient denies nausea vomiting or diarrhea. Patient denies any urinary burning or frequency On 01/14/2024 patient was seen and examined on the medical floor she is alert and oriented x 3 in no apparent distress there is no fever or chills no headache or dizziness no chest pain no shortness of breath no cough no nausea or vomiting no abdominal pain no diarrhea and no urinary symptoms vital exam this morning reveals a temperature of 97.8 pulse 80 respiration 18 blood pressure 115/63 pulse ox 94% on 2 L nasal cannula white blood count is 9.17 hemoglobin 10.8 platelet count 267. No medical issues at this time. Objective - Vital Signs Vital signs: Vital Signs Temp 97.8 F 01/14/24 08:00 Pulse 80 01/14/24 08:00 Resp 18 01/14/24 08:00 BP 115/63 01/14/24 08:00 Pulse Ox 94 L 01/14/24 08:00 FiO2 Intake & Output 01/13/24 01/14/24 01/14/24 18:59 06:59 18:59 Intake Total 751 Output Total 150 Balance 601 Weight 112.5 kg Intake: IV 451 Oral 300 Output: Estimated Blood Loss 150 Other: Voiding Method Toilet # Voids 2 3 - Exam In general patient is alert and oriented x 3 in no distress HEENT head normocephalic and atraumatic Neck is supple no JVD no goiter no lymphadenopathy no carotid bruit Chest examination is clear to auscultation no crackles no wheezing Cardiac exam reveals regular heart sounds S1 and S2 no gallops no murmurs Abdomen is soft nontender no organomegaly with normal bowel sounds Extremity exam reveals no edema no cyanosis or clubbing Neurological examination reveals no gross focal deficits - Labs CBC & Chem 7: 01/14/24 06:03 01/14/24 06:03 Labs: Abnormal Lab Results - Last 24 Hours (Table) 01/13/24 01/13/24 01/13/24 Range/Units 14:27 16:42 20:47 RBC (4.10-5.20) X 10*6/uL Hgb (12.0-15.0) g/dL Hct (37.2-46.3) % MPV (9.5-12.2) FL Monocytes # (0.20-1.00) X 10*3/uL Glucose (70-110) mg/dL POC Glucose (mg/dL) 155 H 151 H 188 H (70-110) mg/dL Calcium (8.7-10.3) mg/dL Total Protein (6.2-8.2) g/dL Albumin (3.8-4.9) g/dL 01/14/24 01/14/24 01/14/24 Range/Units 06:03 06:03 06:13 RBC 3.56 L (4.10-5.20) X 10*6/uL Hgb 10.8 L (12.0-15.0) g/dL Hct 32.6 L (37.2-46.3) % MPV 9.2 L (9.5-12.2) FL Monocytes # 1.06 H (0.20-1.00) X 10*3/uL Glucose 156 H (70-110) mg/dL POC Glucose (mg/dL) 146 H (70-110) mg/dL Calcium 8.6 L (8.7-10.3) mg/dL Total Protein 5.8 L (6.2-8.2) g/dL Albumin 3.7 L (3.8-4.9) g/dL Assessment and Plan Assessment: 1. Status post right shoulder arthroplasty with Dr. Mckoy on 01/13/2024 2. History of diabetes mellitus 3. History of GERD 4. History of essential hypertension 5. History of depression thank you for this consultation we will continue to follow patient closely throughout stay Home meds resumed A.m. labs ordered
--- NOTE | 2024-01-14 12:29 | P.DS ---
Providers Date of admission: 01/13/24 Expected date of discharge: 01/14/24 Attending physician: Renan Rolon Consults: 01/13/24 09:16 Consult Physician Routine Consulting Provider: Melani Jay Consult Reason/Comments: medical management Do you want consulting provider notified?: Yes Primary care physician: Melani Pierre [facility] Course: Hospital Course: The patient was evaluated preoperatively and found to have the diagnosis of Right severe glenohumeral joint osteoarthrosis. They underwent appropriate preoperative care and were willing to undergo the intended procedure. They underwent a successful Right total shoulder arthroplasty, were recovered appropriately and sent to the floor. While on the floor they worked with physical therapy, occupational therapy and nursing to enhance their recovery experience. Their pain was well controlled through their stay and they were started on appropriate medications, DVT ppx modalities, activity and dietary needs. Daily labs were monitored closely, and transfusions were only used when necessary. Medicine as well as other consulting services have made their input and have helped with our team approach and multidisciplinary care. PT milestones have been met and passed and they have made the recommendation of home for this patient and treating providers agree with this care path. The patient will be discharged home with appropriate medications, instructions and follow-up information and in stable condition. Patient Condition at Discharge: Good Plan - Discharge Summary Discharge Rx Participant: No New Discharge Prescriptions: New Aspirin 325 mg PO BID #60 tab HYDROcodone/APAP 7.5-325MG [Smith 7.5] 1 each PO Q4-6H PRN #42 tab PRN Reason: Pain No Action Escitalopram Oxalate [Lexapro] 20 mg PO DAILY Enalapril [Vasotec] 20 mg PO DAILY metFORMIN HCL [Glucophage] 1,000 mg PO BID Ibuprofen [Motrin] 800 mg PO BID Pyridoxine HCl (Vitamin B6) [Vitamin B-6] 100 mg PO AC-SUPPER Vitamin B Complex 1 cap PO AC-SUPPER dilTIAZem HCL [Cardizem] 90 mg PO BID Zinc 50 mg PO DAILY Calcium Carb/Mag Ox/Zinc Sulf [Taf-Jzv-Ljia 334-134-5 mg Tab] 2 tab PO DAILY Omeprazole 20 mg PO HS Cyanocobalamin (Vitamin B-12) [Vitamin B-12] 1,000 mcg PO AC-SUPPER Cholecalciferol [Vitamin D3 (25 Mcg = 1000 Iu)] 5,000 units PO DAILY Ascorbic Acid [Vitamin C] 1,000 mg PO BID Turmeric Root Extract [Turmeric] 500 mg PO BID Glucosamine/Chondr Urbina A Sod [Osteo Bi-Flex Caplet] 2 tab PO DAILY Semaglutide [Ozempic] 1 mg SQ MO Atorvastatin [Lipitor] 20 mg PO HS Discharge Medication List Enalapril [Vasotec] 20 mg PO DAILY 02/29/20 [History] Escitalopram Oxalate [Lexapro] 20 mg PO DAILY 02/29/20 [History] Ibuprofen [Motrin] 800 mg PO BID 02/29/20 [History] metFORMIN HCL [Glucophage] 1,000 mg PO BID 02/29/20 [History] Ascorbic Acid [Vitamin C] 1,000 mg PO BID 02/22/21 [History] Calcium Carb/Mag Ox/Zinc Sulf [Wnw-Ntz-Uwkn 334-134-5 mg Tab] 2 tab PO DAILY 02/22/21 [History] Cholecalciferol [Vitamin D3 (25 Mcg = 1000 Iu)] 5,000 units PO DAILY 02/22/21 [History] Cyanocobalamin (Vitamin B-12) [Vitamin B-12] 1,000 mcg PO AC-SUPPER 02/22/21 [History] Glucosamine/Chondr Urbina A Sod [Osteo Bi-Flex Caplet] 2 tab PO DAILY 02/22/21 [History] Pyridoxine HCl (Vitamin B6) [Vitamin B-6] 100 mg PO AC-SUPPER 02/22/21 [History] Semaglutide [Ozempic] 1 mg SQ MO 02/22/21 [History] Turmeric Root Extract [Turmeric] 500 mg PO BID 02/22/21 [History] Vitamin B Complex 1 cap PO AC-SUPPER 02/22/21 [History] Zinc 50 mg PO DAILY 02/22/21 [History] dilTIAZem HCL [Cardizem] 90 mg PO BID 02/22/21 [History] Omeprazole 20 mg PO HS 01/05/24 [History] Atorvastatin [Lipitor] 20 mg PO HS 01/11/24 [History] Aspirin 325 mg PO BID #60 tab 01/14/24 [Rx] HYDROcodone/APAP 7.5-325MG [Smith 7.5] 1 each PO Q4-6H PRN #42 tab 01/14/24 [Rx] Follow up Appointment(s)/Referral(s): Melani Jay MD [Primary Care Provider] - 1 Week Renan Rolon MD [STAFF PHYSICIAN] - 10 Days Activity/Diet/Wound Care/Special Instructions: 1. Patient may resume medications and supplements when home. 2. Patient may remove bandage 3 days after surgery. 3. Patient may wash over incisions with anti-bacterial soap and water. 4. Do not use creams, moisturizers, lotions on incision. 5. Ice affected area for no more than 20 minutes at a time. 6. Patient must wear sling until seen in office at first post op visit. 7. Contact [facility] with any questions [phone]. Discharge Disposition: HOME SELF-CARE
--- NOTE | 2024-01-14 12:47 | P.PN ---
Subjective Progress Note Date: 01/14/24 Principal diagnosis: Right severe glenohumeral joint osteoarthrosis Patient seen and examined this morning. Patient is sitting up in bed. She does report that she had a little bit of difficulty with right shoulder pain after attempting to get out of bed and straining her shoulder. Educated patient that she should be getting up on the opposite side of the bed to allow for use of her left elbow and shoulder to assist her up out of bed. Encouraged her to continue to use ice packs as needed to assist with pain management. Patient does verbalize and insist on discharge today. Discharge instructions have been reviewed and discussed. Surgical dressing to the right shoulder is clean dry and intact and sling is present. Patient denies any numbness or tingling into the right upper extremity. No acute concerns at this time. Objective - Vital Signs Vital signs: Vital Signs Temp 97.8 F 01/14/24 08:00 Pulse 80 01/14/24 08:00 Resp 18 01/14/24 08:00 BP 115/63 01/14/24 08:00 Pulse Ox 94 L 01/14/24 08:00 FiO2 Intake & Output 01/13/24 01/14/24 01/14/24 18:59 06:59 18:59 Intake Total 751 Output Total 150 Balance 601 Weight 112.5 kg Intake: IV 451 Oral 300 Output: Estimated Blood Loss 150 Other: Voiding Method Toilet # Voids 2 3 - Exam Inspection: Surgical dressing over the right shoulder, this is clean dry and intact with no shadowing noted. Sensation: Sensation is equal, symmetric, bilaterally intact throughout the upper and lower extremities Palpation: Tender to palpation over the right shoulder. Range of motion: Patient does have limited range of motion of right shoulder due to surgical procedure. Motor: 5/5 in all major motor groups in the left upper and lower extremities. 4/5 in the right upper extremity. Neurovascular: Radial pulse intact, 2+ bilaterally. Cap refill under 3 seconds in digits upper extremities. - Labs CBC & Chem 7: 01/14/24 06:03 01/14/24 06:03 Labs: Abnormal Lab Results - Last 24 Hours (Table) 01/13/24 01/13/24 01/13/24 Range/Units 14:27 16:42 20:47 RBC (4.10-5.20) X 10*6/uL Hgb (12.0-15.0) g/dL Hct (37.2-46.3) % MPV (9.5-12.2) FL Monocytes # (0.20-1.00) X 10*3/uL Glucose (70-110) mg/dL POC Glucose (mg/dL) 155 H 151 H 188 H (70-110) mg/dL Calcium (8.7-10.3) mg/dL Total Protein (6.2-8.2) g/dL Albumin (3.8-4.9) g/dL 01/14/24 01/14/24 01/14/24 Range/Units 06:03 06:03 06:13 RBC 3.56 L (4.10-5.20) X 10*6/uL Hgb 10.8 L (12.0-15.0) g/dL Hct 32.6 L (37.2-46.3) % MPV 9.2 L (9.5-12.2) FL Monocytes # 1.06 H (0.20-1.00) X 10*3/uL Glucose 156 H (70-110) mg/dL POC Glucose (mg/dL) 146 H (70-110) mg/dL Calcium 8.6 L (8.7-10.3) mg/dL Total Protein 5.8 L (6.2-8.2) g/dL Albumin 3.7 L (3.8-4.9) g/dL Assessment and Plan Assessment: Postop day 1: Right total shoulder arthroplasty Plan: -Activity: Ambulate QID, OOB all meals, up and about, limit lifting bending twisting to less than 5 lbs. Use walker or cane if needed for stability. -Daily PT/OT, increase ambulation strength and balance. -Sling to right upper extremity until follow up with surgeon. May remove for showers. -Pain control: Adequate at this time -Meds: reviewed -GI ppx: senna, Miralax -DVT PPX: Aspirin -Hygiene: Maintain dressing clean and dry. -Encourage IS 10x/hr -Dispo: Anticipate discharge home today. *I reviewed and discussed this case with my attending Dr. Rolon, whom has reviewed this chart and films and is in agreement with assessment and plan of care as outlined above. I have personally seen and examined the patient, performed the documentation and the assessment and plan as written. Number of minutes spent on the visit: 20m.
[2024-01-14] MEDS ORDERED: ONDANSETRON 4 MG TAB PO PRN (13:09)
[2024-01-14] MEDS: ONDANSETRON ODT 4 MG TAB PO STA (13:22)
[2024-01-16] MEDS ORDERED: SEMAGLUTIDE 1 MG/0.75 ML SQ SCH (09:00)
== END 2024-01-14 13:50 | disposition home or self-care (01) ==
LOC: OR 05:48 → 4SSUR 09:34 → OR 01-14 13:50
PROVIDERS: ATTEND Orthopaedic Surgery
DX: M19.011 Primary osteoarthritis, right shoulder (principal); E11.9 Type 2 diabetes mellitus without complications; E66.9 Obesity, unspecified; E78.5 Hyperlipidemia, unspecified; F32.A Depression, unspecified; G89.18 Other acute postprocedural pain; I10 Essential (primary) hypertension; K21.9 Gastro-esophageal reflux disease without esophagitis; Z79.82 Long term (current) use of aspirin; Z79.84 Long term (current) use of oral hypoglycemic drugs; Z79.899 Other long term (current) drug therapy; Z88.0 Allergy status to penicillin; Z88.5 Allergy status to narcotic agent
CPT/HCPCS: 80053; 85025; 73030; 23472; 64415; J2250; J0690 ×2; J2405; J3010; J1170 ×3

== ENCOUNTER → 2024-01-25 | Outpatient (CLI) | payer MEDICARE ==
--- NOTE | 2024-01-25 11:19 | XR ---
EXAMINATION TYPE: XR shoulder limited RT DATE OF EXAM: 01/25/2024 CLINICAL HISTORY: pain TECHNIQUE: 2 views of the right shoulder are obtained. COMPARISON: None FINDINGS: Proximal right humeral prosthesis appears to be appropriately placed. No evidence for loose tarik. No dislocation apparent at this time. IMPRESSION: 1. As above
== END | disposition home or self-care (01) ==
LOC: RADXRMAIN 10:51
PROVIDERS: ATTEND Orthopaedic Surgery
DX: M25.511 Pain in right shoulder (principal); Z96.611 Presence of right artificial shoulder joint

== ENCOUNTER → 2024-04-25 | Outpatient (CLI) | payer MEDICARE ==
[2024-04-25 11:29] VITALS: BP 104/67; PULSE 68; RESP 16; TEMP 98.7
--- NOTE | 2024-04-25 11:56 | P.SLEEP ---
History of Present Illness DATE: 04/25/2024 CONSULTATION/NEW PATIENT EVALUATION HISTORY OF PRESENT ILLNESS/SLEEP-WAKE EVALUATION: 63-year-old lady had been evaluated in the sleep center for possible obstructive sleep apnea hypopnea syndrome. SLEEP SCHEDULE: Usually sleep schedule from 9 PM to 5:30 AM on weekdays and from 10 PM to 7 AM on weekend. FALLING ASLEEP: No problems with falling asleep. DURING SLEEP: Patient sleeps by herself, so no clear information about snoring. Patient wakes up from sleep 2 times with nocturia. Positive history of grinding teeth. No history of hypnogogical hallucinations, sleep paralysis, or cataplexy. DURING THE DAY/WAKE STATE: Patient denied any significant sleepiness. [place] sleepiness scale is 3. Patient does not take naps. PAST MEDICAL HISTORY: Hypertension, diabetes mellitus, history of vasospasm, right shoulder problems. PAST SURGICAL HISTORY: Right shoulder reconstruction surgery for rotator cuff problems. MEDICATIONS: Please see below. SOCIAL HISTORY: Please see below. FAMILY HISTORY: Arthritis, diabetes. REVIEW OF SYSTEMS: Awakenings from sleep. No fevers. No double vision. No recent chest pain. No shortness of breath. No abdominal pain. No bleeding episodes. No blood in urine. No seizure episodes. PHYSICAL EXAMINATION: GENERAL: A pleasant patient without any distress. VITAL SIGNS: Please see below, weight 255 pounds, BMI 43.7. HEENT: PERRLA, EOMI. Evaluation of oropharynx showed tongue protrudes midline, low position of soft palate Mallampati 4, retrognathia 2 mm. NECK: Supple. No JVD. Thyroid is not palpable. 14.5 inches in circumference. LUNGS: Clear to percussion and to auscultation. Good air exchange. No wheezing or rhonchi. HEART: S1, S2 regular. No murmurs, gallops or rubs. ABDOMEN: Soft and nontender. Bowel sounds are present. No organomegaly appreciated. EXTREMITIES: No clubbing or cyanosis. [employer]: Awake, alert, and oriented x3. Cranial nerves 2 to 7 intact. There is no fasciculation or atrophy noted. No focal deficits observed. ASSESSMENT: 1. Awakenings from sleep with nocturia, extremely low position of soft palate Mallampati 4, retrognathia 2 mm. Obstructive sleep apnea hypopnea syndrome. 2. Obesity, BMI 43.7. 3. Hypertension. 4. Diabetes mellitus. 5 status post right shoulder surgical treatment for rotator cuff problems. 6 . History of vasospasm. 7. dedicated truck driver. PLAN: 1. Polysomnography for evaluation of patient's breathing during sleep. 2. Following plan after reading sleep study. 3. Preferable position during sleep on the side. 4. No driving if patient feels any sleepiness. Patient is aware of civil and criminal liability for unsafe driving. 5. Sleep hygiene with regular sleep time for at least 7.5-8 hours. 6. Watching and losing weight. Thank you very much for referring this patient for consultation. Sincerely, Reji Houston MD, PhD, FAASM. Diplomat of [place] [employer], Sleep Medicine Board by [place] [employer] [place] [employer] [place] [facility] [place] cc: Melani Jay MD Past Medical History Past Medical History: Diabetes Mellitus, GERD/Reflux, Hyperlipidemia, Hypertension, Osteoarthritis (OA) Additional Past Medical History / Comment(s): Vasospasms, none since diagnosed, benign positional vertigo. History of Any Multi-Drug Resistant Organisms: None Reported Past Surgical History: Section, Orthopedic Surgery Additional Past Surgical History / Comment(s): Abdominal absess surgery, esophageal dilation, left ankle reconstruction with hardware. Past Anesthesia/Blood Transfusion Reactions: No Reported Reaction Past Psychological History: Depression Smoking Status: Never smoker Past Alcohol Use History: None Reported Past Drug Use History: None Reported - Past Family History Father Family Medical History: No Reported History Medications and Allergies Home Medications Medication Instructions Recorded Confirmed Type Enalapril [Vasotec] 20 mg PO DAILY 02/29/20 01/13/24 History Escitalopram Oxalate [Lexapro] 20 mg PO DAILY 02/29/20 04/25/24 History Ibuprofen [Motrin] 800 mg PO BID 02/29/20 01/13/24 History metFORMIN HCL [Glucophage] 1,000 mg PO BID 02/29/20 04/25/24 History Ascorbic Acid [Vitamin C] 1,000 mg PO BID 02/22/21 01/13/24 History Calcium Carb/Mag Ox/Zinc Sulf 2 tab PO DAILY 02/22/21 01/13/24 History [Hfs-Ytx-Vejk 334-134-5 mg Tab] Cholecalciferol [Vitamin D3 (25 5,000 units PO DAILY 02/22/21 04/25/24 History Mcg = 1000 Iu)] Cyanocobalamin (Vitamin B-12) 1,000 mcg PO AC-SUPPER 02/22/21 01/13/24 History [Vitamin B-12] Glucosamine/Chondr Urbina A Sod [Osteo 2 tab PO DAILY 02/22/21 01/13/24 History Bi-Flex Caplet] Pyridoxine HCl (Vitamin B6) 100 mg PO AC-SUPPER 02/22/21 01/13/24 History [Vitamin B-6] Semaglutide [Ozempic] 1 mg SQ MO 02/22/21 01/13/24 History Turmeric Root Extract [Turmeric] 500 mg PO BID 02/22/21 01/13/24 History Vitamin B Complex 1 cap PO AC-SUPPER 02/22/21 01/13/24 History Zinc 50 mg PO DAILY 02/22/21 01/13/24 History dilTIAZem HCL [Cardizem] 90 mg PO BID 02/22/21 04/25/24 History Omeprazole 20 mg PO HS 01/05/24 01/13/24 History Atorvastatin [Lipitor] 20 mg PO HS 01/11/24 01/13/24 History Aspirin 325 mg PO BID #60 tab 01/14/24 Rx HYDROcodone/APAP 10-325MG [[place] 1 tab PO Q4-6H PRN #42 tab 01/14/24 Rx 10-325] Ondansetron Odt [Zofran Odt] 4 mg PO Q8HR PRN #20 tab 01/14/24 Rx Atorvastatin [Lipitor] 20 mg PO DAILY 04/25/24 04/25/24 History Cholecalciferol [Vitamin D3 (125 See Rx Instructions .ROUTE .COMPLEX 04/25/24 04/25/24 History Mcg = 5000 Iu)] Enalapril [Vasotec] 20 mg PO DAILY 04/25/24 04/25/24 History Ibuprofen [Motrin] 800 mg PO Q8H 04/25/24 04/25/24 History Oxybutynin ER [Ditropan XL] 10 mg PO BID 04/25/24 04/25/24 History Allergies Allergy/AdvReac Type Severity Reaction Status Date / Time Penicillins Allergy Rash/Hives Verified 01/13/24 06:30 codeine AdvReac Nausea Verified 01/13/24 06:30 Physical Exam Vitals: Vital Signs Temp Pulse Resp BP Pulse Ox 04/25/24 11:28 98.7 F 68 16 104/67 97 Intake and Output 04/24/24 04/25/24 04/25/24 22:59 06:59 14:59 Other: Weight 115.666 kg Sleep Note - Sleep Data ESS Total: 3 - Sleep Note Sleep Note: Temperature: 98.7 F Pulse Rate: 68 Respiratory Rate: 16 Blood Pressure: 104/67 SpO2: 97 Height: 5 ft 4 in Weight: 115.666 kg BMI: Neck Circumference: 14.5
--- NOTE | 2024-04-25 12:11 | P.PROGSL ---
Subjective DATE: 04/25/2024 FOLLOW UP VISIT. Patient with obstructive sleep apnea hypopnea syndrome return to sleep center for follow-up visit. Information from previous visit have been reviewed. Patient is using PAP equipment every night for the whole night, getting PAP supplies in time. The patient does not have significant problems with the mask, PAP unit and humidification. [place] sleepiness scale is 3, which is normal. I checked information from PAP unit. PAP unit pressure 5-7 cm H2O. Usage is 100% for more then 4 hours, average 7 hours per night. Leak is 7 l/m, which is in acceptable range. Apnea Hypopnea Index is 1.5, which is normal. MEDICATIONS have been reviewed, please see below. During physical exam: GENERAL: A pleasant patient without any distress. VITAL SIGNS: Please see below, weight is 192 lbs. HEENT: PERRLA, EOMI.low position of soft palate, Mallapati 4 . NECK: Supple. No JVD. LUNGS: Clear to percussion and to auscultation. Good air exchange. No wheezing or rhonchi. HEART: S1, S2 regular. ABDOMEN: Soft and nontender.[] EXTREMITIES: No clubbing or cyanosis. SENIOR FRONT END ENGINEER: Awake, alert, and oriented x3. No focal deficit. Impressions: 1. Obstructive sleep apnea-hypopnea syndrome. Patient demonstrated great compliance with treatment, benefiting from treatment. 2. Obesity. 3. Hypothyroidism. 4. History of depression. 5. Hyperlipidemia. 6. History of spinal stenosis. 7. Status post bilateral knee replacement. 8. Status post bilateral cataract surgery. Plan: 1. Continue using PAP equipment every night for the whole night. 2. Sleep hygiene with regular time in bed for at least 7.5-8 hours 3. PAP unit should stay lower then position of the head. 4. Advised patient to remove all remaining water from humidifier canister daily and make it dry after each usage. Refill canister with fresh distilled water before each usage. 5. Watching and losing weight. 6. Precautions related to driving. No driving if feel any sleepiness. 7. I will maintain prescription for PAP supplies including mask, tube, filters. 8. Follow up visit in 8 months or earlier if patient has any problems. Thank you very much for allowing me to participate in the management of your patient. Reji Houston MD, PhD, FAASM. Diplomat of [place] [employer] Medicine, Sleep Medicine Board by [place] Board [employer] Medicine Computer Systems Manager of [facility] [place] Objective - Vital Signs Vital Signs: Vital Signs Temp 98.7 F 04/25/24 11:28 Pulse 68 04/25/24 11:28 Resp 16 04/25/24 11:28 BP 104/67 04/25/24 11:28 Pulse Ox 97 04/25/24 11:28 FiO2 Intake & Output 04/24/24 04/25/24 04/25/24 18:59 06:59 18:59 Weight 115.666 kg Home Medications: Home Medications Medication Instructions Recorded Confirmed Type Enalapril [Vasotec] 20 mg PO DAILY 02/29/20 01/13/24 History Escitalopram Oxalate [Lexapro] 20 mg PO DAILY 02/29/20 04/25/24 History Ibuprofen [Motrin] 800 mg PO BID 02/29/20 01/13/24 History metFORMIN HCL [Glucophage] 1,000 mg PO BID 02/29/20 04/25/24 History Ascorbic Acid [Vitamin C] 1,000 mg PO BID 02/22/21 01/13/24 History Calcium Carb/Mag Ox/Zinc Sulf 2 tab PO DAILY 02/22/21 01/13/24 History [Wnu-Pkh-Rttr 334-134-5 mg Tab] Cholecalciferol [Vitamin D3 (25 5,000 units PO DAILY 02/22/21 04/25/24 History Mcg = 1000 Iu)] Cyanocobalamin (Vitamin B-12) 1,000 mcg PO AC-SUPPER 02/22/21 01/13/24 History [Vitamin B-12] Glucosamine/Chondr Urbina A Sod [Osteo 2 tab PO DAILY 02/22/21 01/13/24 History Bi-Flex Caplet] Pyridoxine HCl (Vitamin B6) 100 mg PO AC-SUPPER 02/22/21 01/13/24 History [Vitamin B-6] Semaglutide [Ozempic] 1 mg SQ MO 02/22/21 01/13/24 History Turmeric Root Extract [Turmeric] 500 mg PO BID 02/22/21 01/13/24 History Vitamin B Complex 1 cap PO AC-SUPPER 02/22/21 01/13/24 History Zinc 50 mg PO DAILY 02/22/21 01/13/24 History dilTIAZem HCL [Cardizem] 90 mg PO BID 02/22/21 04/25/24 History Omeprazole 20 mg PO HS 01/05/24 01/13/24 History Atorvastatin [Lipitor] 20 mg PO HS 01/11/24 01/13/24 History Aspirin 325 mg PO BID #60 tab 01/14/24 Rx HYDROcodone/APAP 10-325MG [[place] 1 tab PO Q4-6H PRN #42 tab 01/14/24 Rx 10-325] Ondansetron Odt [Zofran Odt] 4 mg PO Q8HR PRN #20 tab 01/14/24 Rx Atorvastatin [Lipitor] 20 mg PO DAILY 04/25/24 04/25/24 History Cholecalciferol [Vitamin D3 (125 See Rx Instructions .ROUTE .COMPLEX 04/25/24 04/25/24 History Mcg = 5000 Iu)] Enalapril [Vasotec] 20 mg PO DAILY 04/25/24 04/25/24 History Ibuprofen [Motrin] 800 mg PO Q8H 04/25/24 04/25/24 History Oxybutynin ER [Ditropan XL] 10 mg PO BID 04/25/24 04/25/24 History
== END ==
LOC: 3 N SLEEP 10:44
PROVIDERS: ATTEND Internal Medicine
CPT/HCPCS: 99211

== ENCOUNTER 2024-05-06 19:30 | Outpatient (CLI) | payer MEDICARE ==
--- NOTE | 2024-05-09 10:31 | P.PCN ---
Description of Procedure: POLYSOMNOGRAPHY REPORT PROCEDURE(S)/DATE(S): Polysomnography 05/06/2024 CLINICAL: Patient has been seen in the sleep center for evaluation of obstructive sleep apnea-hypopnea syndrome. Please see my consultation. Sleep study has been done for evaluation of patient breathing during the sleep. PROCEDURE: The standard montage for clinical polysomnography included the electroencephalogram, the electrooculogram, the mentalis surface electromyography and Lead II cardiography. The respiratory battery consisted of measurements of nasal/buccal air flow, pressure transducer measurements from nose, thoracic and/or abdominal effort and intercostal surface electromyography. Video monitoring has been done to check for any parasomnia events. Nocturnal oxyhemoglobin saturations were obtained by finger oximetry. Step-maldonado titration with positive airway pressure was utilized to control the respiratory events, if necessary. RESULTS: During the diagnostic sleep study sleep efficiency was significantly decreased to 57.1%. Latency to sleep onset was significantly prolonged to 53.0 min. Sleep architecture showed stage NI was extremely high 44.9%, Delta sleep was practically absent 0.2%, REM sleep was normal 20.3%. Respiratory channel showed 0 obstructive apneas, 0 mixed apneas, 0 central apneas, 31 hypopneas with lowest oxygen level 85%. Total apnea hypopnea index was 6.7. Heart rate was in the range between 59 and 73, average 68. EMG showed 19.8 periodic limb movements per hour with 0.7 micro-arousals per hour. IMPRESSIONS: 1. Mild obstructive sleep apnea hypopnea syndrome. 2. Significant periodic limb movements have been documented. 3. Hypertension. 4. Schoolbus route delivery driver. Please see other impressions from consultation PLAN: 1. The patient will have AutoPAP treatment for correction of respiratory abnormalities during the sleep. 2. Losing weight program. 3. Sleep hygiene with regular time in bed for at least 7-1/2 hours. 4. No driving if feeling sleepiness. 5. Please check iron profile including ferritin level. Low level of iron may increase the risk for periodic limb movements. 6. I will see patient for follow-up visit to evaluate clinical response on treatment, compliance with treatment and [place] adjustments related to mask fitting pressure and humidification. Thank you very much for allowing me to participate in the management of your patient. Sincerely, Reji Houston MD, PhD, FAASM. Diplomat of [place] [employer], Sleep Medicine Board by [place] [employer] Shipping Order Clerk of [facility] [place] cc: Melani Jay MD
== END 2024-05-07 05:45 | disposition home or self-care (01) ==
LOC: 3 N SLEEP 19:30
PROVIDERS: ATTEND Internal Medicine
DX: G47.33 Obstructive sleep apnea (adult) (pediatric) (principal); G47.61 Periodic limb movement disorder; I10 Essential (primary) hypertension; Z88.0 Allergy status to penicillin; Z88.5 Allergy status to narcotic agent; Z79.899 Other long term (current) drug therapy
CPT/HCPCS: 95810

== ENCOUNTER → 2024-06-21 | Outpatient (CLI) | payer MEDICARE ==
[2024-06-21 10:56] VITALS: BP 118/78; PULSE 60; RESP 12; TEMP 98.2
--- NOTE | 2024-06-21 11:19 | P.PROGSL ---
Subjective DATE: 06/21/2024 FOLLOW UP VISIT. Patient with obstructive sleep apnea hypopnea syndrome return to sleep center for follow-up visit. Recently patient had sleep study which documented obstructive sleep apnea hypopnea syndrome. Patient was initiated on PAP therapy and today is first visit after treatment was started. Patient was able to use PAP equipment every night for the whole night. The patient does not have significant problems with the mask, PAP pressure and humidification. [place] sleepiness scale is 1, which is perfect. I checked information from PAP unit. PAP unit pressure 5-14, average 6.9 cm H2O. Usage is 100% for more then 4 hours, average 5.6 hours per night. Leak is 4 l/m, which is in acceptable range. Apnea Hypopnea Index is 0.5, which is perfect. MEDICATIONS:1. [] 2. [] 3. [] 4. [] 5. [] 6. [] 7. [] 8. [] During physical exam: GENERAL: A pleasant patient without any distress. VITAL SIGNS: Please see below, weight 245 pounds. HEENT: PERRLA, EOMI.low position of soft palate, Mallapati 4 . NECK: Supple. No JVD. LUNGS: Clear to percussion and to auscultation. Good air exchange. No wheezing or rhonchi. HEART: S1, S2 regular. ABDOMEN: Soft and nontender. Obese EXTREMITIES: No clubbing or cyanosis. DRILL HAND: Awake, alert, and oriented x3. No focal deficit. Impressions: 1. Obstructive sleep apnea-hypopnea syndrome. Patient demonstrated great compliance with treatment, benefiting from treatment. 2. Obesity. 3. Hypertension. 4. Diabetes mellitus. 5. History of vasospasm. 6. Status post right shoulder surgical treatment for rotator cuff problems. 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 Plan: 1. Continue using PAP equipment every night for the whole night. 2. To change air filter at least 1-2 times per month. 3. PAP unit should stay lower then position of the head. 4. Advised patient to remove all remaining water from humidifier canister daily and make it dry after each usage. Refill canister with fresh distilled water before each usage. 5. Sleep hygiene with regular time in bed for at least 8 hours. 6. Precautions related to driving. No driving if feel any sleepiness. 7. I will maintain prescription for PAP supplies including mask, tube, filters. 8. Follow up visit in 8 months or earlier if patient has any problems. 9. Watching and losing weight. Thank you very much for allowing me to participate in the management of your patient. Reji Houston MD, PhD, FAASM. Diplomat of [place] [employer], Sleep Medicine Board by [place] [employer] Business Systems Administrator of [facility] [place] cc: Melani Jay MD [facility] [phone] telephone number Objective - Vital Signs Vital Signs: Vital Signs Temp 98.2 F 06/21/24 10:56 Pulse 60 06/21/24 10:56 Resp 12 06/21/24 10:56 BP 118/78 06/21/24 10:56 Pulse Ox 100 06/21/24 10:56 FiO2 Intake & Output 06/20/24 06/21/24 06/21/24 18:59 06:59 18:59 Weight 254 kg Home Medications: Home Medications Medication Instructions Recorded Confirmed Type Enalapril [Vasotec] 20 mg PO DAILY 02/29/20 01/13/24 History Escitalopram Oxalate [Lexapro] 20 mg PO DAILY 02/29/20 04/25/24 History Ibuprofen [Motrin] 800 mg PO BID 02/29/20 01/13/24 History metFORMIN HCL [Glucophage] 1,000 mg PO BID 02/29/20 04/25/24 History Ascorbic Acid [Vitamin C] 1,000 mg PO BID 02/22/21 01/13/24 History Calcium Carb/Mag Ox/Zinc Sulf 2 tab PO DAILY 02/22/21 01/13/24 History [Bpz-Ols-Ccmx 334-134-5 mg Tab] Cholecalciferol [Vitamin D3 (25 5,000 units PO DAILY 02/22/21 04/25/24 History Mcg = 1000 Iu)] Cyanocobalamin (Vitamin B-12) 1,000 mcg PO AC-SUPPER 02/22/21 01/13/24 History [Vitamin B-12] Glucosamine/Chondr Urbina A Sod [Osteo 2 tab PO DAILY 02/22/21 01/13/24 History Bi-Flex Caplet] Pyridoxine HCl (Vitamin B6) 100 mg PO AC-SUPPER 02/22/21 01/13/24 History [Vitamin B-6] Semaglutide [Ozempic] 1 mg SQ MO 02/22/21 01/13/24 History Turmeric Root Extract [Turmeric] 500 mg PO BID 02/22/21 01/13/24 History Vitamin B Complex 1 cap PO AC-SUPPER 02/22/21 01/13/24 History Zinc 50 mg PO DAILY 02/22/21 01/13/24 History dilTIAZem HCL [Cardizem] 90 mg PO BID 02/22/21 04/25/24 History Omeprazole 20 mg PO HS 01/05/24 01/13/24 History Atorvastatin [Lipitor] 20 mg PO HS 01/11/24 01/13/24 History Aspirin 325 mg PO BID #60 tab 01/14/24 Rx HYDROcodone/APAP 10-325MG [[place] 1 tab PO Q4-6H PRN #42 tab 01/14/24 Rx 10-325] Ondansetron Odt [Zofran Odt] 4 mg PO Q8HR PRN #20 tab 01/14/24 Rx Atorvastatin [Lipitor] 20 mg PO DAILY 04/25/24 04/25/24 History Cholecalciferol [Vitamin D3 (125 See Rx Instructions .ROUTE .COMPLEX 04/25/24 04/25/24 History Mcg = 5000 Iu)] Enalapril [Vasotec] 20 mg PO DAILY 04/25/24 04/25/24 History Ibuprofen [Motrin] 800 mg PO Q8H 04/25/24 04/25/24 History Oxybutynin ER [Ditropan XL] 10 mg PO BID 04/25/24 04/25/24 History
== END ==
LOC: 3 N SLEEP 10:44
PROVIDERS: ATTEND Internal Medicine
DX: G47.33 Obstructive sleep apnea (adult) (pediatric) (principal); E66.9 Obesity, unspecified; I10 Essential (primary) hypertension; E11.9 Type 2 diabetes mellitus without complications; Z98.890 Other specified postprocedural states; Z99.89 Dependence on other enabling machines and devices; Z88.0 Allergy status to penicillin; Z88.5 Allergy status to narcotic agent; Z79.84 Long term (current) use of oral hypoglycemic drugs; Z79.899 Other long term (current) drug therapy; Z79.85 Long-term (current) use of injectable non-insulin antidiabetic drugs; Z68.41 Body mass index [BMI] 40.0-44.9, adult
CPT/HCPCS: 99212

== ENCOUNTER → 2024-10-16 | Outpatient (CLI) | payer MEDICARE ==
--- NOTE | 2024-10-16 10:56 | XR ---
EXAMINATION TYPE: XR chest 2V DATE OF EXAM: 10/16/2024 10:39 AM COMPARISON: Chest radiographs from 03/20/2021. CLINICAL INDICATION: Female, 64 years old with history of R91.8 follow up right mid lung opacity; [facility] TECHNIQUE: XR chest 2V Frontal and lateral views of the chest. FINDINGS: Lungs/Pleura: There is no evidence of pleural effusion, focal consolidation, or pneumothorax. Pulmonary vascularity: Unremarkable. Heart/mediastinum: Cardiomediastinal silhouette is unremarkable. Musculoskeletal: No acute osseous pathology. Right shoulder arthroplasty appears intact. IMPRESSION: No acute cardiopulmonary disease/process. [facility], , 10/16/2024 10:54 AM
== END | disposition home or self-care (01) ==
LOC: RADXRMAIN 10:13
PROVIDERS: ATTEND Internal Medicine
DX: R91.8 Other nonspecific abnormal finding of lung field (principal)
CPT/HCPCS: 71046

== ENCOUNTER → 2024-12-27 | Outpatient (CLI) | payer MEDICARE ==
--- NOTE | 2024-12-27 16:02 | MM ---
Reason for Exam: Screening (asymptomatic). Last mammogram was performed 1 year(s) and 4 month(s) ago. Patient History: Menarche at age 11. First Full-Term at age 21. Postmenopausal. Hormonal Contraceptives for 3 years from age 19 until age 22. 03/13/2020, Benign Core Biopsy on the right side. Risk Values: Mackenzie 5 year model risk: 1.8%. NCI Lifetime model risk: 6.4%. Prior Study Comparison: 09/15/2020 Right Diagnostic Mammogram, [facility]. 07/14/2021 Bilateral Screening Mammogram, [facility]. 08/31/2023 Bilateral MG 3D screening mammo w/cad, [facility]. Tissue Density: The breasts are heterogeneously dense, which may obscure small masses. Findings: Analyzed By CAD. Bilateral areas of asymmetric density are unchanged. Dermal and small oil cyst calcifications are unchanged. Calcifications central right breast with microclip related to prior biopsy are unchanged. There is no suspicious group of microcalcifications or new suspicious mass in either breast. Overall Assessment: Benign, BI-RAD 2 Management: Screening Mammogram of both breasts in 1 year. Patient should continue monthly self-breast exams. A clinical breast exam by your physician is recommended on an annual basis. This exam should not preclude additional follow-up of suspicious palpable abnormalities. Note on Mackenzie scores and lifetime risk: 1. A Mackenzie score greater than 3% is considered moderate risk. If this is the case, consider specialist referral to assess eligibility for a risk reducing agent. 2. If overall lifetime risk for the development of breast cancer is 20% or higher, the patient may qualify for future screening with alternating mammogram and breast MRI. [facility], , 12/27/2024 3:58 PM. Electronically signed and approved by: Dionicio Gallo M.D. Radiologist
--- NOTE | 2024-12-27 16:48 | BD ---
EXAMINATION TYPE: Axial Bone Density DATE OF EXAM: 12/27/2024 CLINICAL HISTORY: 64 years old Female. ICD-10 CODE: N95.1MENOPAUSAL, M85.88 DISORDER OF BONE DENSITY , Additional History: Height: 64 Weight: 266 FRAX RISK QUESTIONS: Alcohol (3 or more units per day): no Family History (Parent hip fracture): no Glucocorticoids (More than 3mos): no (Ex: prednisone, prednisolone, methylprednisolone, dexamethasone, and hydrocortisone). History of Fracture in Adulthood: yes Secondary Osteoporosis: 1. Type 1 Diabetes: no 2. Hyperthyroidism: no 3. Menopause before 45: no 4. Malnutrition: no 5. Chronic liver disease: no Rheumatoid Arthritis: no Current Tobacco Use: no RISK FACTORS HISTORY OF: Surgery to Spine/Hip(right/left)/Wrist (right/left): no EXAM MEASUREMENTS: Bone mineral densitometry was performed using the artaculous System. Bone mineral density as measured about the Lumbar spine is: ----- L1-L4(G/cm2): 1.528 T Score Values are as follows: ----- L1: 3.2 ----- L2: 2.1 ----- L3: 2.7 ----- L4: 3.2 ----- L1-L4: 2.9 Z Score Values are as follows: ----- L1: 3.7 ----- L2: 2.6 ----- L3: 3.1 ----- L4: 3.7 ----- L1-L4: 3.3 Bone mineral density has: increased 3.8 % since study of: 08.11.2020 Bone mineral density about the R hip (g/cm2): 1.108 Bone mineral density about the L hip (g/cm2): 1.145 T Score values are as follows: -----R Neck: 0.9 -----L Neck: 0.5 -----R Total: 0.8 -----L Total: 1.1 Z Score values are as follows: -----R Neck: 1.6 -----L Neck: 1.3 -----R Total: 1.2 -----L Total: 1.5 Bone mineral density has: decreased -5.9 % since study of: 2020 FRAX%s: The graph provided illustrates a 8.8% chance for a major osteoporotic fx and a 0.2% chance fo r the hips probability for fx in 10 years time. IMPRESSION: Normal (Values between +1 and -1 indicate normal bone mass). Consider repeating this study in 5 year s or sooner if there is some new clinical indication. NOTE: T-SCORE=SD OF THE YOUNG ADULT MEAN. [facility], , 12/27/2024 4:46 PM
== END | disposition home or self-care (01) ==
LOC: RADMAMWWP 14:14
PROVIDERS: ATTEND Internal Medicine
DX: Z12.31 Encounter for screening mammogram for malignant neoplasm of breast (principal); R92.333 Mammographic heterogeneous density, bilateral breasts; M85.88 Other specified disorders of bone density and structure, other site; Z78.0 Asymptomatic menopausal state; Z92.0 Personal history of contraception
CPT/HCPCS: 77063; 77067; 77080